=== PATIENT | male | born 1995 | race Two or more races ===

== ENCOUNTER 2019-05-09 12:40 | Emergency (ER) | payer MEDICAID ==
[~2019-05-09] VITALS: Ht 175.3 cm; Wt 79.0 kg
[2019-05-09] MEDS ORDERED: TETANUS, DIPHTHERIA, PERTUSSIS VAC/PF 0.5ML (>7YR OLD) IM ONE (13:15)
[2019-05-09] MEDS ORDERED: HYDROCODONE/ACETAMINOPHEN 5/325MG TABLET PO ONE ×2 (13:15→22:15)
[2019-05-09] MEDS ORDERED: CEFAZOLIN SODIUM 1000MG/VIAL IM ONE (13:15)
[2019-05-09] MEDS ORDERED: BACITRACIN ZINC OINT UDPKT TOP ONE (13:15)
[2019-05-09] MEDS ORDERED: IBUPROFEN 600MG TABLET PO ONE (13:15)
[2019-05-09] MEDS ORDERED: LIDOCAINE HCL/PF 1% 10 MG/ML 5ML VIAL IJ ONE ×4 (13:15→15:15)
[2019-05-09] MEDS ORDERED: SODIUM CHLORIDE 0.9% 1,000 ML IV ONE (16:22)
[2019-05-09] MEDS ORDERED: MORPHINE SULFATE 2 MG/ML CPJ (NOT FOR IM USE) IV ONE (17:45)
[2019-05-09] MEDS ORDERED: MORPHINE SULFATE 10 MG/ML CPJ IV ONE (20:45)
[2019-05-09] MEDS ORDERED: ONDANSETRON HCL 4MG/2ML INJ IV ONE (20:45)
[2019-05-09 22:31] VITALS: BP 122/65
== END 2019-05-09 22:37 | disposition home or self-care (01) ==
LOC: ER 12:40
DX: S62.614B Displaced fracture of proximal phalanx of right ring finger, initial encounter for open fracture (principal); S56.125A Laceration of flexor muscle, fascia and tendon of right ring finger at forearm level, initial encounter; W23.0XXA Caught, crushed, jammed, or pinched between moving objects, initial encounter; Y93.89 Activity, other specified; Y92.89 Other specified places as the place of occurrence of the external cause; Z23 Encounter for immunization
CPT/HCPCS: 12004; 73130; 90471; 90715; 96372; 96374; 96375; 96376; 99284; J0690; J2270; J2405; J3490; J7030